=== PATIENT | female | born 1970 | race Caucasian/White ===

== ENCOUNTER 2023-09-04 16:20 | Emergency (ER) | payer MEDICARE ==
[~2023-09-04] VITALS: Ht 162.6 cm; Wt 72.3 kg
[2023-09-04 16:24] VITALS: BP 107/62; PULSE 75; RESP 16; O2SAT 98
[2023-09-04] MEDS ORDERED: GABA300C PO (16:51)
[2023-09-04] MEDS ORDERED: NICO-687 TOP (16:51)
[2023-09-04 17:08] VITALS: TEMP 98
== END 2023-09-04 17:09 | disposition home or self-care (01) ==
LOC: ER 16:21
DX: F10.10 Alcohol abuse, uncomplicated (principal); F17.200 Nicotine dependence, unspecified, uncomplicated; Z88.2 Allergy status to sulfonamides; Z91.011 Allergy to milk products
CPT/HCPCS: 99282; 99283

== ENCOUNTER 2023-09-09 02:00 | Emergency (ER) | payer MEDICARE ==
[~2023-09-09] VITALS: Ht 162.6 cm; Wt 74.5 kg
[~2023-09-09 02:00] MED LIST: GABA300C PO; NICO-687 TOP
[2023-09-09 02:04] VITALS: BP 138/84; PULSE 60; RESP 17; TEMP 97.9; O2SAT 100
== END 2023-09-09 04:01 | disposition left against medical advice (07) ==
LOC: ER 02:01
DX: R45.851 Suicidal ideations (principal); Z53.21 Procedure and treatment not carried out due to patient leaving prior to being seen by health care provider
CPT/HCPCS: 99281

== ENCOUNTER 2023-10-23 14:09 | Emergency (ER) | payer MEDICARE ==
[~2023-10-23] VITALS: Ht 165.1 cm; Wt 68.0 kg
[~2023-10-23 14:09] MED LIST changes: -NICO-687 TOP
[2023-10-23 14:25] VITALS: BP 118/78; PULSE 68; RESP 16; TEMP 98.2; O2SAT 99
[2023-10-23 14:35] LABS: EOSINOPHILS # (AUTO) 0.1 X10'3 (0-0.9); HEMOGLOBIN 10.9 g/dl (12.0-16.0); MEAN PLATELET VOLUME 9.1 FL (7.4-10.4); MONOCYTES # (AUTO) 0.6 X10'3 (0-0.9); RED CELL DISTRIBUTION WIDTH 15.1 % (11.5-14.5)
[2023-10-23 14:37] LABS: BASOPHILS % (AUTO) 0.6 % (0-1); EOSINOPHILS % (AUTO) 1.3 % (0-6); HEMATOCRIT 32.5 % (35.0-45.0); LYMPHOCYTES % (AUTO) 33.7 % (21-51); MEAN CORPUSCULAR HEMOGLOBIN 30.7 PG (27.0-31.0); MEAN CORPUSCULAR HGB CONC 33.6 g/dL (33.0-36.5); MEAN CORPUSCULAR VOLUME 91.4 FL (78-98); MONOCYTES % (AUTO) 10.3 % (2-12); NEUTROPHILS # (AUTO) 3.2 X10'3 (1.8-7.7); NEUTROPHILS % (AUTO) 54.1 % (42-75); PLATELET COUNT 260 X10'3 (140-440); RED BLOOD COUNT 3.56 X10'6 (4.20-5.60)
[2023-10-23 14:58] LABS: ALBUMIN 3.8 G/DL (3.4-5.0); ANION GAP 8 (8-16); BLOOD UREA NITROGEN 8 MG/DL (7-18); BUN/CREATININE RATIO 9.6 (10.0-20.0); CALCIUM 8.9 MG/DL (8.5-10.1); CHLORIDE 98 MMOL/L (99-107); CREATININE 0.83 MG/DL (0.40-0.90); GLUCOSE 91 MG/DL (70-104); POTASSIUM 3.3 MMOL/L (3.5-5.1); PRO BRAIN NATRIURETIC PEPTIDE 169 PG/ML (0-125); SODIUM 133 MMOL/L (135-145); TOTAL CARBON DIOXIDE 26.9 MMOL/L (24-32); eCRCL 69 ML/MIN; eGFR 71 ML/MIN
== END 2023-10-23 19:03 | disposition left against medical advice (07) ==
LOC: ER 14:10
DX: R07.9 Chest pain, unspecified (principal); Z53.21 Procedure and treatment not carried out due to patient leaving prior to being seen by health care provider
CPT/HCPCS: 36415; 71045; 80048; 83880; 84484; 85025; 93005

== ENCOUNTER 2024-02-02 13:57 | Emergency (ER) | payer MEDICARE, MEDICAID ==
[~2024-02-02] VITALS: Ht 162.6 cm; Wt 58.8 kg
[~2024-02-02 13:57] MED LIST changes: +HYDR-3686 PO
[2024-02-02] MEDS: LORazepam 1 MG tablet PO ONE (16:15)
[2024-02-02 17:39] LABS: URINE AMPHETAMINE SCREEN NEGATIVE (Neg); URINE BARBITUATE SCREEN NEGATIVE (Neg); URINE BENZODIAZEPINES SCREEN NEGATIVE (Neg); URINE CANNABINOID SCREEN NEGATIVE (Neg); URINE COCAINE SCREEN NEGATIVE (Neg); URINE METHADONE SCREEN NEGATIVE (Neg); URINE OPIATE SCREEN NEGATIVE (Neg); URINE PHENCYCLIDINE SCREEN NEGATIVE (Neg)
[2024-02-02] MEDS: CefTRIAXone 500MG IM Kit w/LIDOcaine (for pt below or = to 150kg) IM ONE (18:14)
[2024-02-02] MEDS: TINIDAZOLE 500 MG TABLET PO ONE (18:15)
[2024-02-02] MEDS: azithromycin 250mg tablet PO ONE (18:15)
[2024-02-02 18:55] LABS: BILIRUBIN,URINE NEGATIVE (Neg); CLARITY,URINE SLIGHTLY CLOUDY (Clear); COLOR,URINE STRAW (Yellow); GLUCOSE, URINE NEGATIVE (Neg); KETONES,URINE NEGATIVE (Neg); LEUKOCYTE ESTERASE ,URINE MODERATE (Neg); NITRITES, URINE NEGATIVE (Neg); OCCULT BLOOD,URINE TRACE-INTACT (Neg); PROTEIN,URINE NEGATIVE (Neg); UROBILINOGEN,URINE 0.2 E.U/dL (0.2-1.0)
[2024-02-02 19:00] LABS: UA COLLECTION TYPE VOIDED
[2024-02-02 19:01] LABS: BACTERIA,URINE 1+ /HPF (Neg); SQUAMOUS EPITHELIAL CELL,UR MODERATE /LPF (FEW); WBC CLUMPS,URINE FEW /HPF (NEGATIVE)
[2024-02-02 19:02] LABS: RBC,URINE 0-2 /HPF (0-2); WBC,URINE 30-50 /HPF (0-4)
[2024-02-02 19:52] VITALS: BP 99/68; PULSE 82; RESP 13; TEMP 97.8; O2SAT 96
== END 2024-02-02 19:58 | disposition home or self-care (01) ==
LOC: EEVIPCON 13:58 → ER 13:58
DX: T74.21XA Adult sexual abuse, confirmed, initial encounter (principal); F41.9 Anxiety disorder, unspecified; Z88.2 Allergy status to sulfonamides; Z79.899 Other long term (current) drug therapy
CPT/HCPCS: 80305; 81001; 96372; 99284; J0696

== ENCOUNTER 2024-02-09 12:40 | Emergency (ER) | payer MEDICARE, MEDICAID ==
[~2024-02-09] VITALS: Ht 154.9 cm; Wt 52.3 kg
[2024-02-09] MEDS ORDERED: FLUT1AER INH (13:32)
[2024-02-09] MEDS ORDERED: ALBU18HF2 INH (13:32)
[2024-02-09] MEDS ORDERED: HYDR-3686 PO (13:32)
[2024-02-09] MEDS ORDERED: KETO15CR2 TOP (13:32)
[2024-02-09] MEDS ORDERED: OXYB5TAB21 PO (13:32)
[2024-02-09] MEDS ORDERED: MELO-100 PO (13:32)
[2024-02-09] MEDS ORDERED: CARB1DRO (13:32)
[2024-02-09] MEDS ORDERED: VALS160T2 PO (13:32)
[2024-02-09] MEDS ORDERED: LEVO100T PO (13:32)
[2024-02-09] MEDS ORDERED: [UNRECOGNIZED DRUG - CODE] PO (13:32)
[2024-02-09 13:35] LABS: HEMOGLOBIN 12.5 g/dl (12.0-16.0); LYMPHOCYTES # (AUTO) 0.9 X10'3 (1.1-4.8); MEAN PLATELET VOLUME 8.8 FL (7.4-10.4); MONOCYTES # (AUTO) 0.5 X10'3 (0-0.9); NEUTROPHILS # (AUTO) 3.1 X10'3 (1.8-7.7); PLATELET COUNT 249 X10'3 (140-440)
[2024-02-09 13:36] LABS: BASOPHILS % (AUTO) 0.2 % (0-1); EOSINOPHILS % (AUTO) 0.3 % (0-6); HEMATOCRIT 37.4 % (35.0-45.0); LYMPHOCYTES % (AUTO) 20.2 % (21-51); MEAN CORPUSCULAR HEMOGLOBIN 28.9 PG (27.0-31.0); MEAN CORPUSCULAR HGB CONC 33.3 g/dL (33.0-36.5); MEAN CORPUSCULAR VOLUME 86.7 FL (78-98); MONOCYTES % (AUTO) 11.9 % (2-12); NEUTROPHILS % (AUTO) 67.4 % (42-75); RED BLOOD COUNT 4.32 X10'6 (4.20-5.60); RED CELL DISTRIBUTION WIDTH 14.1 % (11.5-14.5); WHITE BLOOD COUNT 4.6 X10'3 (4.5-11.0)
[2024-02-09] MEDS: LORazepam 1 MG tablet PO ONE ×2 (13:45→22:27)
[2024-02-09] MEDS: diphenhydrAMINE 25mg capsule PO ONE (13:45)
[2024-02-09] MEDS ORDERED: ACYC-129 PO (13:46)
[2024-02-09] MEDS ORDERED: LORA-268 PO (13:48)
[2024-02-09 15:12] LABS: ALANINE AMINOTRANSFERASE 16 U/L (12-78); ALBUMIN 3.8 G/DL (3.4-5.0); ALBUMIN/GLOBULIN RATIO 1.3 (1.1-1.5); ALKALINE PHOSPHATASE 62 IU/L (46-116); ANION GAP 9 (8-16); ASPARTATE AMINO TRANSFERASE 22 U/L (10-37); BILIRUBIN,TOTAL 0.3 MG/DL (0.1-1.0); BLOOD UREA NITROGEN 4 MG/DL (7-18); BUN/CREATININE RATIO 5.9 (10.0-20.0); CALCIUM 9.2 MG/DL (8.5-10.1); CHLORIDE 91 MMOL/L (99-107); CREATININE 0.68 MG/DL (0.40-0.90); GLUCOSE 114 MG/DL (70-104); POTASSIUM 3.6 MMOL/L (3.5-5.1); SODIUM 126 MMOL/L (135-145); TOTAL CARBON DIOXIDE 26.2 MMOL/L (24-32); TOTAL PROTEIN 6.8 G/DL (6.4-8.2); eCRCL 71 ML/MIN; eGFR 90 ML/MIN
[2024-02-09 15:19] LABS: THYROID STIMULATING HORMONE 0.03 ulU/ml (0.34-4.50)
[2024-02-09 15:50] LABS: ETHANOL < 10 MG/DL (<10)
[2024-02-09 16:28] LABS: BILIRUBIN,URINE NEGATIVE (Neg); CLARITY,URINE CLEAR (Clear); COLOR,URINE YELLOW (Yellow); GLUCOSE, URINE NEGATIVE (Neg); KETONES,URINE NEGATIVE (Neg); LEUKOCYTE ESTERASE ,URINE NEGATIVE (Neg); NITRITES, URINE NEGATIVE (Neg); OCCULT BLOOD,URINE NEGATIVE (Neg); PROTEIN,URINE NEGATIVE (Neg); UROBILINOGEN,URINE 0.2 E.U/dL (0.2-1.0)
[2024-02-09 16:34] LABS: UA COLLECTION TYPE CLN CATCH MIDSTREAM
[2024-02-09 16:45] LABS: URINE HCG NEGATIVE (NEG)
[2024-02-09 16:46] LABS: URINE AMPHETAMINE SCREEN NEGATIVE (Neg); URINE BARBITUATE SCREEN NEGATIVE (Neg); URINE BENZODIAZEPINES SCREEN NEGATIVE (Neg); URINE CANNABINOID SCREEN NEGATIVE (Neg); URINE COCAINE SCREEN NEGATIVE (Neg); URINE METHADONE SCREEN NEGATIVE (Neg); URINE OPIATE SCREEN NEGATIVE (Neg); URINE PHENCYCLIDINE SCREEN NEGATIVE (Neg)
[2024-02-09] MEDS ORDERED: non-formulary drug (Albuterol Sulfate (Ventolin Hfa) 2 PUFFS) INH PRN (18:05)
[2024-02-09] MEDS ORDERED: albuterol 2.5 MG/3 ML nebule NEB PRN (18:05)
[2024-02-09] MEDS: oxybutynin 5mg tablet PO SCH (21:16)
[2024-02-09] MEDS: ketoconazole 2% cream 15gm TP SCH (21:16)
[2024-02-09] MEDS: sodium chloride 1gm tablet PO SCH (21:16)
[2024-02-09] MEDS: guaiFENesin 200 MG/10 ML oral syrup UD cup PO ONE (22:28)
[2024-02-10] MEDS: hydrOXYzine 25 MG tablet PO SCH (00:23)
[2024-02-10] MEDS: amLODIPine 2.5mg tablet PO SCH (08:04)
[2024-02-10] MEDS: LORazepam 0.5 MG tablet PO PRN (08:05)
[2024-02-10] MEDS: levoTHYROXINE 112mcg tablet PO SCH (08:05)
[2024-02-10] MEDS: MELOXICAM 7.5 MG TABLET PO SCH (08:25)
[2024-02-10] MEDS: non-formulary drug (Fluticasone/Vilanterol (Breo Ellipta 100-25 Mcg INH) 1 PUFFS) IH SCH (08:26)
[2024-02-10] MEDS: LORazepam 1 MG tablet PO ONE ×2 (20:03→20:08)
[2024-02-11] MEDS: diphenhydrAMINE 25mg capsule PO ONE (11:04)
[2024-02-11] MEDS: LORazepam 1 MG tablet PO ONE ×2 (11:04→19:26)
[2024-02-11] MEDS: OLANZapine 5mg rapidly disint. tablet PO ONE (11:04)
[2024-02-11] MEDS: acetaminophen 325mg tablet PO ONE (19:26)
[2024-02-12] MEDS: acetaminophen 325mg tablet PO ONE (05:54)
[2024-02-12] MEDS ORDERED: OLANZapine 2.5MG tablet PO PRN (09:10)
[2024-02-12] MEDS ORDERED: LORazepam 0.5 MG tablet PO PRN (09:10)
[2024-02-12] MEDS: olanzapine 10mg tablet PO STA (09:39)
[2024-02-12] MEDS: LORazepam 1 MG tablet PO ONE ×2 (09:39→20:31)
[2024-02-12 16:56] LABS: ALANINE AMINOTRANSFERASE 12 U/L (12-78); ALBUMIN 3.2 G/DL (3.4-5.0); ALKALINE PHOSPHATASE 61 IU/L (46-116); ANION GAP 5 (8-16); ASPARTATE AMINO TRANSFERASE 10 U/L (10-37); BILIRUBIN,TOTAL 0.2 MG/DL (0.1-1.0); BLOOD UREA NITROGEN 12 MG/DL (7-18); BUN/CREATININE RATIO 12.4 (10.0-20.0); CALCIUM 9.1 MG/DL (8.5-10.1); CHLORIDE 105 MMOL/L (99-107); CREATININE 0.97 MG/DL (0.40-0.90); GLUCOSE 89 MG/DL (70-104); POTASSIUM 4.3 MMOL/L (3.5-5.1); SODIUM 139 MMOL/L (135-145); TOTAL CARBON DIOXIDE 29.5 MMOL/L (24-32); TOTAL PROTEIN 6.3 G/DL (6.4-8.2); eCRCL 49 ML/MIN; eGFR 60 ML/MIN
[2024-02-12] MEDS: OLANZapine 2.5MG tablet PO ONE (20:33)
[2024-02-13] MEDS: LORazepam 1 MG tablet PO ONE (20:01)
[2024-02-13] MEDS: diphenhydrAMINE 25mg capsule PO ONE (20:30)
[2024-02-13] MEDS: haloperidol 5mg tablet PO ONE (20:30)
[2024-02-14] MEDS: LORazepam 1 MG tablet PO PRN (15:24)
[2024-02-15] MEDS: ziprasidone IM 20mg inj **IM only IM ONE (12:12)
[2024-02-16] MEDS: LORazepam 1 MG tablet PO ONE (09:02)
[2024-02-16 16:11] LABS: COVID19 ID NOW NEGATIVE (Neg)
[2024-02-16] MEDS: LORazepam 2 mg/ml vial IM ONE (18:00)
[2024-02-17] MEDS: MELOXICAM 7.5 MG TABLET PO SCH (07:01)
[2024-02-17 07:17] VITALS: BP 132/78; PULSE 78; RESP 18; TEMP 97.7; O2SAT 99
== END 2024-02-17 07:19 ==
LOC: ER 12:40
DX: U07.1 COVID-19 (principal); Z73.6 Limitation of activities due to disability; Z88.2 Allergy status to sulfonamides; Z79.899 Other long term (current) drug therapy
CPT/HCPCS: 36415; 80053; 80305; 81003; 81025; 84443; 85025; 87635; 87811; 96372; 99285; G0480; Q0163; Q0177; 80320

== ENCOUNTER 2024-03-01 20:30 | Emergency (ER) | payer MEDICARE, MEDICAID ==
[~2024-03-01] VITALS: Ht 162.6 cm; Wt 63.6 kg
[~2024-03-01 20:30] MED LIST changes: +ACYC-129 PO; +ALBU18HF2 INH; +CARB1DRO; +FLUT1AER INH; -GABA300C PO; +KETO15CR2 TOP; +LEVO100T PO; +LORA-268 PO; +MELO-100 PO; +OXYB5TAB21 PO; +VALS160T2 PO; +[UNRECOGNIZED DRUG - CODE] PO
[2024-03-01 21:49] LABS: BASOPHILS % (AUTO) 0.3 % (0-1); EOSINOPHILS % (AUTO) 0.7 % (0-6); HEMATOCRIT 35.6 % (35.0-45.0); HEMOGLOBIN 11.9 g/dl (12.0-16.0); LYMPHOCYTES # (AUTO) 1.3 X10'3 (1.1-4.8); LYMPHOCYTES % (AUTO) 21.9 % (21-51); MEAN CORPUSCULAR HEMOGLOBIN 29.2 PG (27.0-31.0); MEAN CORPUSCULAR HGB CONC 33.4 g/dL (33.0-36.5); MEAN CORPUSCULAR VOLUME 87.5 FL (78-98); MEAN PLATELET VOLUME 9.5 FL (7.4-10.4); MONOCYTES # (AUTO) 0.9 X10'3 (0-0.9); MONOCYTES % (AUTO) 14.6 % (2-12); NEUTROPHILS # (AUTO) 3.8 X10'3 (1.8-7.7); NEUTROPHILS % (AUTO) 62.5 % (42-75); PLATELET COUNT 256 X10'3 (140-440); RED BLOOD COUNT 4.07 X10'6 (4.20-5.60); RED CELL DISTRIBUTION WIDTH 15.1 % (11.5-14.5); WHITE BLOOD COUNT 6.1 X10'3 (4.5-11.0)
[2024-03-01 22:02] LABS: ALANINE AMINOTRANSFERASE 19 U/L (12-78); ALBUMIN 3.7 G/DL (3.4-5.0); ALBUMIN/GLOBULIN RATIO 1.1 (1.1-1.5); ALKALINE PHOSPHATASE 77 IU/L (46-116); ANION GAP 11 (8-16); BILIRUBIN,TOTAL 0.7 MG/DL (0.1-1.0); BLOOD UREA NITROGEN 10 MG/DL (7-18); BUN/CREATININE RATIO 7.5 (10.0-20.0); CALCIUM 9.4 MG/DL (8.5-10.1); CHLORIDE 92 MMOL/L (99-107); CREATININE 1.34 MG/DL (0.40-0.90); GLUCOSE 104 MG/DL (70-104); SODIUM 130 MMOL/L (135-145); eCRCL 41 ML/MIN; eGFR 41 ML/MIN
[2024-03-01 22:19] LABS: ASPARTATE AMINO TRANSFERASE 23 U/L (10-37); POTASSIUM 4.2 MMOL/L (3.5-5.1)
[2024-03-02 01:45] LABS: BILIRUBIN,URINE NEGATIVE (Neg); CLARITY,URINE CLEAR (Clear); COLOR,URINE YELLOW (Yellow); GLUCOSE, URINE NEGATIVE (Neg); KETONES,URINE NEGATIVE (Neg); LEUKOCYTE ESTERASE ,URINE NEGATIVE (Neg); NITRITES, URINE NEGATIVE (Neg); OCCULT BLOOD,URINE NEGATIVE (Neg); PROTEIN,URINE NEGATIVE (Neg); UROBILINOGEN,URINE 0.2 E.U/dL (0.2-1.0)
[2024-03-02 02:00] LABS: UA COLLECTION TYPE CLN CATCH MIDSTREAM
[2024-03-02] MEDS: hydrOXYzine 25 MG tablet PO ONE (02:18)
[2024-03-02] MEDS: LIDOcaine 5% patch TP ONE (03:01)
[2024-03-02 03:08] VITALS: BP 106/61; PULSE 62; RESP 14; TEMP 98.2; O2SAT 97
== END 2024-03-02 03:11 | disposition home or self-care (01) ==
LOC: ER 20:32
DX: Z00.00 Encounter for general adult medical examination without abnormal findings (principal); R40.4 Transient alteration of awareness; Z88.2 Allergy status to sulfonamides; Z79.899 Other long term (current) drug therapy; Z79.2 Long term (current) use of antibiotics
CPT/HCPCS: 36415; 71045; 80053; 81003; 83605; 84145; 85025; 87040; 99284; A4353; Q0177

== ENCOUNTER 2024-03-12 16:36 | Emergency (ER) | payer MEDICARE, MEDICAID ==
[~2024-03-12] VITALS: Ht 162.6 cm; Wt 63.0 kg
[2024-03-12 16:45] VITALS: TEMP 98.2
[2024-03-12] MEDS: hydrOXYzine 25 MG tablet PO ONE (17:30)
[2024-03-12 17:32] VITALS: BP 119/77; PULSE 78; RESP 16; O2SAT 98
== END 2024-03-12 17:36 | disposition home or self-care (01) ==
LOC: ER 16:36
DX: F41.9 Anxiety disorder, unspecified (principal); Z88.2 Allergy status to sulfonamides; Z79.52 Long term (current) use of systemic steroids; Z79.899 Other long term (current) drug therapy
CPT/HCPCS: 99283; Q0177